=== PATIENT | male | born 1945 | race American Indian/Alaskan Native ===

== ENCOUNTER 2019-08-23 17:08 | Inpatient (IN) | payer MEDICARE ==
--- NOTE | 2019-08-23 18:35 | Emergency Department Report ---
ED Shortness of Breath HPI - General Chief Complaint: Dyspnea/Respdistress Stated Complaint: FEVER/COVID Time Seen by Provider: 08/23/19 18:05 Source: EMS Mode of arrival: Stretcher Limitations: No Limitations - History of Present Illness Initial Comments: Patient is a 73-year-old male who presents emergency room with complaints of shortness of breath, dyspnea on exertion, fever, chills, body aches, cough. Patient that she tested +2 weeks ago for COVID-19. Patient states his symptoms have worsened. Patient states his symptoms have been progressively worse over the last 2 weeks. Patient denies chest pain. Patient states his shortness of breath better with rest and worse with exertion. Patient states his cough is dry. Patient states he is not on home oxygen. MD Complaint: shortness of breath, cough -: Gradual, week(s) Severity: severe Consistency: constant Improves With: rest Worsens With: exertion, movement Context: recent URI Associated Symptoms: fever, cough Treatments Prior to Arrival: none - Related Data Home Oxygen Therapy: No Allergies Allergy/AdvReac Type Severity Reaction Status Date / Time No Known Allergies Allergy Unverified 08/23/19 19:38 ED Review of Systems ROS: Stated complaint: FEVER/COVID Other details as noted in HPI Constitutional: chills, fever, malaise Eyes: denies: eye pain, eye discharge, vision change ENT: denies: ear pain, throat pain Respiratory: cough, shortness of breath, SOB with exertion, SOB at rest. denies: wheezing Cardiovascular: denies: chest pain, palpitations Endocrine: no symptoms reported Gastrointestinal: nausea. denies: abdominal pain, vomiting, diarrhea Genitourinary: denies: urgency, dysuria Musculoskeletal: denies: back pain, joint swelling, arthralgia Skin: denies: rash, lesions Neurological: denies: headache, weakness, paresthesias Psychiatric: denies: anxiety, depression Hematological/Lymphatic: denies: easy bleeding, easy bruising ED Past Medical Hx - Past Medical History Previous Medical History?: Yes Hx Hypertension: Yes - Surgical History Past Surgical History?: No - Family History Family history: no significant - Social History Smoking Status: Never Smoker Substance Use Type: None ED Physical Exam - General Limitations: No Limitations General appearance: alert, in no apparent distress - Head Head exam: Present: atraumatic, normocephalic - Eye Eye exam: Present: normal appearance - ENT ENT exam: Present: mucous membranes moist - Neck Neck exam: Present: normal inspection - Respiratory Respiratory exam: Present: normal lung sounds bilaterally. Absent: respiratory distress, wheezes - Cardiovascular Cardiovascular Exam: Present: regular rate, normal rhythm. Absent: systolic murmur, diastolic murmur, rubs, gallop - GI/Abdominal GI/Abdominal exam: Present: soft, normal bowel sounds - Rectal Rectal exam: Present: deferred - Extremities Exam Extremities exam: Present: normal inspection - Back Exam Back exam: Present: normal inspection - Neurological Exam Neurological exam: Present: alert, oriented X3 - Psychiatric Psychiatric exam: Present: normal affect, normal mood - Skin Skin exam: Present: warm, dry, intact, normal color. Absent: rash ED Course Vital Signs 08/23/19 08/23/19 08/23/19 18:26 18:30 18:46 Temperature 101.0 F H Pulse Rate 84 70 77 Respiratory 19 19 24 Rate Blood Pressure 168/72 168/72 O2 Sat by Pulse 95 97 Oximetry 08/23/19 08/23/19 19:00 19:16 Temperature Pulse Rate 75 70 Respiratory 26 H 20 Rate Blood Pressure 168/72 168/72 O2 Sat by Pulse 96 97 Oximetry - Reevaluation(s) Reevaluation #1: Initial evaluation done. Patient found to be hypoxic. Patient 86% on room air and placed on 4 L of oxygen and is now 95%. 08/23/19 18:39 Reevaluation #2: I discussed all results with patient. I discussed plan of care with patient. Patient agrees with plan of care and admission. Patient to be admitted to the hospitalist service. 08/23/19 19:41 - Consultations Consultation #1: ID consult placed in the system along with the COVID NEUMANN protocol. 08/23/19 19:41 Consultation #2: Hospitalist consulted for admission. Hospitalist to admit patient. 08/23/19 19:45 ED Medical Decision Making - Lab Data Result diagrams: 08/23/19 19:06 08/23/19 19:06 - Radiology Data Radiology results: report reviewed, image reviewed CHEST 1 VIEW INDICATION: Dyspnea. COMPARISON: None. FINDINGS: Support devices: None. Heart: Normal. Lungs/Pleura: No consolidation or effusion. There are mild diffuse increased interstitial markings. IMPRESSION: 1. Mild diffuse increased interstitial markings could be due at least in part artifactual related to underpenetration/patient body habitus. This could also be seen in the setting of lower airways disease. - Medical Decision Making Patient is a 73-year-old male that presents emergency room with complaints of shortness of breath, dyspnea on exertion, fever, cough, COVID. Patient diagnosed COVID 2 weeks prior to arrival. Patient states his shortness of breath is worsening. Patient found to be hypoxic and placed on 4 L which brought his O2 sat from 86 to 94%. Patient given antibiotics and Decadron. Patient had labs done and were essentially unremarkable. Patient's COVID PUI panel ordered. Patient admitted to the hospitalist service. ID consulted. Chest x-ray shows bilateral pneumonia. - Differential Diagnosis Hypoxia, COVID, cough, pneumonia, shortness of breath, GREGORIO Critical Care Time: Yes Critical care time in (mins) excluding proc time.: 35 Critical care attestation.: If time is entered above; I have spent that time in minutes in the direct care of this critically ill patient, excluding procedure time. Critical Care Time: 35 minutes ED Disposition Clinical Impression: SOB (shortness of breath), COVID-19, GREGORIO (dyspnea on exertion), Hypoxia Fever Qualifiers: Fever type: unspecified Qualified Code(s): R50.9 - Fever, unspecified Pneumonia Qualifiers: Pneumonia type: due to unspecified organism Laterality: bilateral Lung location: unspecified part of lung Qualified Code(s): J18.9 - Pneumonia, unspecified organism Disposition: 09 OP ADMIT IP TO THIS HOSP Is pt being admited?: Yes Does the pt Need Aspirin: No Condition: Critical Referrals: JAMES RAMIREZ MD [Primary Care Provider] - 3-5 Days Time of Disposition: 19:41
--- NOTE | 2019-08-23 19:24 | XRay Report ---
CHEST 1 VIEW INDICATION: Dyspnea. COMPARISON: None. FINDINGS: Support devices: None. Heart: Normal. Lungs/Pleura: No consolidation or effusion. There are mild diffuse increased interstitial markings. IMPRESSION: 1. Mild diffuse increased interstitial markings could be due at least in part artifactual related to underpenetration/patient body habitus. This could also be seen in the setting of lower airways diseas e. Signer Name: Sarmad Rodriguez MD Signed: 08/23/2019 7:20 PM Workstation Name: [id number]
[2019-08-23] MEDS ORDERED: dexAMETHasone 4 MG/ML VIAL IV ONE (19:35)
[2019-08-23] MEDS ORDERED: cefTRIAXone/NS 2 GM/100 ML 2 GM/100 ML BAG IV ONE (19:35)
[2019-08-23 19:37] LABS: Basophils % (Auto) 0.5 % (0.0-1.8); Eosinophils % (Auto) 0.1 % (0.0-4.3); Hematocrit 39.5 % (35.5-45.6); Hemoglobin 12.5 gm/dl (11.8-15.2); Lymphocytes # (Auto) 0.8 K/mm3 (1.2-5.4); Lymphocytes % (Auto) 22.1 % (13.4-35.0); Mean Corpuscular HGB Conc 32 % (32-34); Mean Corpuscular Volume 76 fl (84-94); Monocytes # (Auto) 0.6 K/mm3 (0.0-0.8); Monocytes % (Auto) 14.8 % (0.0-7.3); Platelet Count 139 K/mm3 (140-440); Red Blood Count 5.21 M/mm3 (3.65-5.03); Red Cell Distribution Width 14.5 % (13.2-15.2)
[2019-08-23 19:57] LABS: Creatine Kinase MB 3.2 ng/mL (0.0-4.0)
[2019-08-23 20:00] LABS: Alanine Aminotransferase 101 units/L (7-56); Albumin 3.7 g/dL (3.9-5); BUN/Creatinine Ratio 16; Blood Urea Nitrogen 16 mg/dL (9-20); Calcium 8.5 mg/dL (8.4-10.2); Hemolysis Index 0
[2019-08-23] MEDS ORDERED: AZITHROMYCIN 500 MG in SODIUM CHLORIDE 0.9% 250ML 250 ML IV ONE (20:00)
[2019-08-23 20:15] LABS: C-Reactive Protein 4.3 mg/dL (0.00-1.30)
--- NOTE | 2019-08-23 20:31 | History and Physical Report ---
History of Present Illness Chief complaint: It is hard to breathe History of present illness: 73 YO Male with HTN presents to ED for evaluation. Pt states that he has experienced generalized weakness, malaise, early fatigue, decreased exercise tolerance, subjective fever, body aches, dry cough over the past 2 weeks with worsening symptoms over the same timeframe. Patient states that he tested positive for COVID-19 2 weeks ago. EMS notified and upon arrival the patient was found to be in respiratory distress and was subsequently transported to [facility] for further care and evaluation of the aforementioned symptoms. Patient seen and evaluated in the emergency department. Lab and imaging studies reviewed. Patient underwent chest x-ray which revealed bilateral pneumonia, as well as patient was found to have a pulse oximetry of 89% on room air which is consistent with acute hypoxemic respiratory failure. Patient initiated on COVID-19 protocol in the emergency department. Patient denies chills, chest pain, palpitations, unilateral leg swelling, calf pain, individual/family history of DVT/PE/bleeding/blood clotting disorders, prolonged travel/immobility, trauma. No prior admission for review. No medication listed at time of admission for reconciliation. Advanced care planning conducted in the ED. Patient admitted to medical floor due to increased risk of pulmonary decompensation. Past History Past Medical History: hypertension Past Surgical History: No surgical history, Other (Reviewed) Social history: Family history: hypertension Medications and Allergies Allergies Allergy/AdvReac Type Severity Reaction Status Date / Time No Known Allergies Allergy Unverified 08/23/19 19:38 Active Meds: Active Medications Azithromycin 500 mg/ Sodium (Chloride) 250 mls @ 250 mls/hr IV ONCE ONE; Protocol Stop: 08/23/19 20:59 Review of Systems Constitutional: fever, weakness, malaise, lethargy, no weight loss, no weight gain, no chills Ears, nose, mouth and throat: no ear pain, no ear discharge, no tinnitis, no decreased hearing, no nose pain, no nasal congestion Cardiovascular: no chest pain, no orthopnea, no palpitations, no rapid/irregular heart beat, no edema Respiratory: no cough, no cough with sputum, no hemoptysis, no shortness of breath Gastrointestinal: no nausea, no vomiting, no constipation Genitourinary Male: no hematuria, no flank pain, no discharge, no urinary frequency, no urinary hesitancy Rectal: no pain, no incontinence, no bleeding Musculoskeletal: no neck stiffness, no neck pain, no shooting arm pain, no arm numbness/tingling, no low back pain Integumentary: no rash, no pruritis, no redness, no sores Neurological: no transient paralysis, no paralysis, no parathesias Psychiatric: no anxiety, no memory loss, no change in sleep habits, no insomnia, no change in appetite Endocrine: no cold intolerance, no heat intolerance, no excessive thirst, no davie ydipsia, no polyuria Hematologic/Lymphatic: no easy bruising, no easy bleeding Allergic/Immunologic: no allergic rhinitis Exam - Constitutional Vitals: Temp Pulse Resp BP Pulse Ox 101.0 F H 70 20 168/72 97 08/23/19 18:26 08/23/19 19:16 08/23/19 19:16 08/23/19 19:16 08/23/19 19:16 General appearance: Present: mild distress - EENT Eyes: Present: PERRL ENT: hearing intact, clear oral mucosa - Neck Neck: Present: supple, normal ROM - Respiratory Respiratory effort: normal Respiratory: bilateral: diminished, rhonchi - Cardiovascular Heart Sounds: Present: S1 & S2. Absent: rub, click - Extremities Extremities: pulses symmetrical, No edema Peripheral Pulses: within normal limits - Abdominal General gastrointestinal: Present: soft, non-tender, non-distended, normal bowel sounds Male genitourinary: Present: normal - Integumentary Integumentary: Present: clear, warm, dry - Musculoskeletal Musculoskeletal: gait normal, strength equal bilaterally - Psychiatric Psychiatric: appropriate mood/affect, intact judgment & insight - Neurologic Neurologic: CNII-XII intact, moves all extremities HEART Score - HEART Score Troponin: Troponin T < 0.010 ng/mL (0.00-0.029) 08/23/19 19:06 Results - Labs CBC & Chem 7: 08/23/19 19:06 08/23/19 19:38 Labs: Abnormal lab results 08/23/19 08/23/19 08/23/19 Range/Units 19:06 19:06 19:38 WBC 3.8 L (4.5-11.0) K/mm3 RBC 5.21 H (3.65-5.03) M/mm3 MCV 76 L (84-94) fl MCH 24 L (28-32) pg Plt Count 139 L (140-440) K/mm3 [place] % (Auto) 14.8 H (0.0-7.3) % Lymph # 0.8 L (1.2-5.4) K/mm3 D-Dimer 838.92 H (0-234) ng/mlDDU Sodium 134 L (137-145) mmol/L Carbon Dioxide 21 L (22-30) mmol/L Glucose 108 H (75-100) mg/dL AST 109 H (5-40) units/L ALT 101 H (7-56) units/L Lactate Dehydrogenase (91-180) units/L Total Creatine Kinase 945 H (55-170) units/L C-Reactive Protein (0.00-1.30) mg/dL Albumin 3.7 L (3.9-5) g/dL 08/23/19 Range/Units 19:38 WBC (4.5-11.0) K/mm3 RBC (3.65-5.03) M/mm3 MCV (84-94) fl MCH (28-32) pg Plt Count (140-440) K/mm3 [place] % (Auto) (0.0-7.3) % Lymph # (1.2-5.4) K/mm3 D-Dimer (0-234) ng/mlDDU Sodium (137-145) mmol/L Carbon Dioxide (22-30) mmol/L Glucose 109 H (75-100) mg/dL AST (5-40) units/L ALT (7-56) units/L Lactate Dehydrogenase 583 H (91-180) units/L Total Creatine Kinase (55-170) units/L C-Reactive Protein 4.30 H (0.00-1.30) mg/dL Albumin (3.9-5) g/dL Assessment and Plan - Patient Problems (1) Acute hypoxemic respiratory failure Current Visit: Yes Status: Acute Plan to address problem: Supplemental oxygen, nebulizer therapy, pulse oximetry, chest x-ray, pulmonary toilet, (2) Hypertension Current Visit: Yes Status: Acute Qualifiers: Hypertension type: essential hypertension Qualified Code(s): I10 - Essential (primary) hypertension Plan to address problem: Monitor blood pressure every shift, continue medical management. (3) COVID-19 Current Visit: Yes Status: Acute Plan to address problem: COVID-19 protocol: COVID 19 PCR ordered in ED, isolation precautions, contact precautions, prone positioning while in bed (4) Pneumonia Current Visit: Yes Status: Acute Qualifiers: Pneumonia type: due to unspecified organism Laterality: bilateral Lung location: unspecified part of lung Qualified Code(s): J18.9 - Pneumonia, unspecified organism Plan to address problem: Pneumonia protocol: Chest x-ray, CBC, CMP, IV antibiotic therapy, supplemental oxygen, pulse oximetry, (5) DVT prophylaxis Current Visit: Yes Status: Acute Plan to address problem: SCD to bilateral lower extremities while in bed, patient is ambulatory. (6) Advance care planning Current Visit: Yes Status: Acute Plan to address problem: Disease education conducted, patient is full code, patient prognosis discussed, patient acknowledges understanding and agreement with care plan, +30 minutes.
[2019-08-23] MEDS ORDERED: ACETAMINOPHEN 325 MG TAB PO PRN (20:42)
[2019-08-23] MEDS ORDERED: ONDANSETRON 4 MG/2 ML INJ IV PRN (20:42)
[2019-08-24 08:47] LABS: Basophils % (Auto) 0.6 % (0.0-1.8); Eosinophils % (Auto) 0.1 % (0.0-4.3); Hematocrit 40.2 % (35.5-45.6); Hemoglobin 12.7 gm/dl (11.8-15.2); Lymphocytes # (Auto) 0.8 K/mm3 (1.2-5.4); Lymphocytes % (Auto) 30.8 % (13.4-35.0); Mean Corpuscular HGB Conc 32 % (32-34); Mean Corpuscular Volume 76 fl (84-94); Monocytes # (Auto) 0.3 K/mm3 (0.0-0.8); Monocytes % (Auto) 11.7 % (0.0-7.3); Platelet Count 144 K/mm3 (140-440); Red Blood Count 5.27 M/mm3 (3.65-5.03); Red Cell Distribution Width 14.8 % (13.2-15.2)
[2019-08-24 09:04] LABS: BUN/Creatinine Ratio 19; Blood Urea Nitrogen 15 mg/dL (9-20); Calcium 8.8 mg/dL (8.4-10.2); Hemolysis Index 11
[2019-08-24] MEDS: AZITHROMYCIN 250 MG TAB PO SCH (09:58)
[2019-08-24] MEDS: cefTRIAXone/NS 2 GM/100 ML 2 GM/100 ML BAG IV SCH (09:58)
[2019-08-24] MEDS ORDERED: AZITHROMYCIN 500 MG in SODIUM CHLORIDE 0.9% 250ML 250 ML IV SCH (10:00)
--- NOTE | 2019-08-24 19:02 | Progress Note ---
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 Which is pneumonia currently treated with cefepime and azithromycin. (2) Advance care planning Current Visit: Yes Status: Acute (3) COVID-19 Current Visit: Yes Status: Acute Plan to address problem: Patient past history of COVID-19 infection. Most likely latent pneumonia or infection from previous COVID. COVID PCR pending. Patient continue isolation as we are doing now. (4) GREGORIO (dyspnea on exertion) Current Visit: Yes Status: Acute Plan to address problem: Secondary to pneumonia. (5) Pneumonia Current Visit: Yes Status: Acute Qualifiers: Pneumonia type: due to unspecified organism Laterality: bilateral Lung location: unspecified part of lung Qualified Code(s): J18.9 - Pneumonia, unspecified organism Plan to address problem: Patient has bilateral pneumonia consistent with possible COVID infection versus community-acquired infection. Patient being treated with azithromycin and cefepime at this time. Seems to be improving. History Interval history: Patient is 73-year-old with history of hypertension generalized weakness malaise fatigue presents with fever cough x2 weeks. Patient was COVID +2 weeks ago. Appears to have had a latent infection secondary to COVID pneumonia. Patient st ates he feels better today. Breathing better. Hospitalist Physical - Constitutional Vitals: Temp Pulse Resp BP Pulse Ox 97.6 F 56 L 22 135/54 94 08/24/19 11:43 08/24/19 11:43 08/24/19 11:43 08/24/19 11:43 08/24/19 11:43 General appearance: Present: mild distress - EENT Eyes: Present: PERRL, EOM intact ENT: hearing intact, clear oral mucosa, dentition normal - Neck Neck: Present: supple, normal ROM - Respiratory Respiratory: bilateral: rales, rhonchi - Cardiovascular Rhythm: irregularly irregular Heart Sounds: Present: S1 & S2 - Extremities Extremities: no ischemia, pulses symmetrical, No edema, Full ROM, abnormal Extremity abnormal: other (Deconditioning) - Psychiatric Psychiatric: appropriate mood/affect - Neurologic Neurologic: CNII-XII intact, focal deficits HEART Score - HEART Score Troponin: Troponin T < 0.010 ng/mL (0.00-0.029) 08/23/19 19:06 Results - Labs CBC & Chem 7: 08/24/19 07:46 08/24/19 07:46 Labs: Laboratory Last Values WBC 2.5 K/mm3 (4.5-11.0) L 08/24/19 07:46 RBC 5.27 M/mm3 (3.65-5.03) H 08/24/19 07:46 Hgb 12.7 gm/dl (11.8-15.2) 08/24/19 07:46 Hct 40.2 % (35.5-45.6) 08/24/19 07:46 MCV 76 fl (84-94) L 08/24/19 07:46 MCH 24 pg (28-32) L 08/24/19 07:46 MCHC 32 % (32-34) 08/24/19 07:46 RDW 14.8 % (13.2-15.2) 08/24/19 07:46 Plt Count 144 K/mm3 (140-440) 08/24/19 07:46 Lymph % (Auto) 30.8 % (13.4-35.0) 08/24/19 07:46 [place] % (Auto) 11.7 % (0.0-7.3) H 08/24/19 07:46 Eos % (Auto) 0.1 % (0.0-4.3) 08/24/19 07:46 Baso % (Auto) 0.6 % (0.0-1.8) 08/24/19 07:46 Lymph # 0.8 K/mm3 (1.2-5.4) L 08/24/19 07:46 [place] # 0.3 K/mm3 (0.0-0.8) 08/24/19 07:46 Eos # 0.0 K/mm3 (0.0-0.4) 08/24/19 07:46 Baso # 0.0 K/mm3 (0.0-0.1) 08/24/19 07:46 Seg Neutrophils % 56.8 % (40.0-70.0) 08/24/19 07:46 Seg Neutrophils # 1.4 K/mm3 (1.8-7.7) L 08/24/19 07:46 D-Dimer 838.92 ng/mlDDU (0-234) H 08/23/19 19:38 Sodium 135 mmol/L (137-145) L 08/24/19 07:46 Potassium 5.5 mmol/L (3.6-5.0) H D 08/24/19 07:46 Chloride 100.1 mmol/L (98-107) 08/24/19 07:46 Carbon Dioxide 25 mmol/L (22-30) 08/24/19 07:46 Anion Gap 15 mmol/L 08/24/19 07:46 BUN 15 mg/dL (9-20) 08/24/19 07:46 Creatinine 0.8 mg/dL (0.8-1.5) 08/24/19 07:46 Estimated GFR > 60 ml/min 08/24/19 07:46 BUN/Creatinine Ratio 19 % 08/24/19 07:46 Glucose 124 mg/dL (75-100) H 08/24/19 07:46 Lactic Acid 1.10 mmol/L (0.7-2.0) 08/23/19 19:06 Calcium 8.8 mg/dL (8.4-10.2) 08/24/19 07:46 Ferritin > 2000.0 ng/mL (13.0-400.0) H 08/23/19 19:38 Total Bilirubin 0.40 mg/dL (0.1-1.2) 08/23/19 19:06 AST 109 units/L (5-40) H 08/23/19 19:06 ALT 101 units/L (7-56) H 08/23/19 19:06 Alkaline Phosphatase 58 units/L (35-129) 08/23/19 19:06 Lactate Dehydrogenase 583 units/L (91-180) H 08/23/19 19:38 Total Creatine Kinase 945 units/L (55-170) H 08/23/19 19:06 CK-MB (CK-2) 3.2 ng/mL (0.0-4.0) 08/23/19 19:06 CK-MB (CK-2) Rel Index 0.3 (0-4) 08/23/19 19:06 Troponin T < 0.010 ng/mL (0.00-0.029) 08/23/19 19:06 C-Reactive Protein 4.30 mg/dL (0.00-1.30) H 08/23/19 19:38 Total Protein 7.1 g/dL (6.3-8.2) 08/23/19 19:06 Albumin 3.7 g/dL (3.9-5) L 08/23/19 19:06 Albumin/Globulin Ratio 1.1 % 08/23/19 19:06 Procalcitonin 0.17 ng/mL (<0.15) 08/23/19 19:38 Jeffers/IV: Voiding Method Urinal IV Catheter Type [Right Hand] INT / Saline Lock Active Medications - Current Medications Current Medications: Generic Name Dose Route Start Last Admin Trade Name Freq PRN Reason Stop Dose Admin Acetaminophen 650 mg 08/23/19 20:42 Tylenol PO Q4H PRN Pain MILD(1-3)/Fever >100.5/DC Azithromycin 500 mg 08/24/19 10:00 08/24/19 09:58 Zithromax PO 500 mg QDAY MARLY Administration Ceftriaxone Sodium 2 gm in 100 mls @ 200 mls/hr 08/24/19 10:00 08/24/19 09:58 Rocephin/Ns 2 Gm/100 Ml IV 200 mls/hr Q24HR MARLY Administration Protocol Ondansetron HCl 4 mg 08/23/19 20:42 Zofran IV Q8H PRN Nausea And Vomiting Sodium Chloride 10 ml 08/23/19 22:00 08/24/19 09:59 Sodium Chloride Flush Syringe 10 Ml IV 10 ml BID MARLY Administration Sodium Chloride 10 ml 08/23/19 20:42 Sodium Chloride Flush Syringe 10 Ml IV PRN PRN LINE FLUSH
[2019-08-25] MEDS: AZITHROMYCIN 250 MG TAB PO SCH (09:31)
[2019-08-25] MEDS: cefTRIAXone/NS 2 GM/100 ML 2 GM/100 ML BAG IV SCH (09:31)
--- NOTE | 2019-08-25 12:48 | Progress Note ---
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 Which is pneumonia currently treated with cefepime and azithromycin. (2) Advance care planning Current Visit: Yes Status: Acute (3) COVID-19 Current Visit: Yes Status: Acute Plan to address problem: Patient with a positive test 2 weeks ago now presents with persistent fever weakness. Chest x-ray unremarkable for acute disease. Patient did have elev ated inflammatory markers. ID consult to see if patient requires treatment with antiviral, steroids and with a repeat Kovic test to be beneficial at this time. (4) GREGORIO (dyspnea on exertion) Current Visit: Yes Status: Acute Plan to address problem: Secondary to pneumonia. (5) Pneumonia Current Visit: Yes Status: Acute Qualifiers: Pneumonia type: due to unspecified organism Laterality: bilateral Lung location: unspecified part of lung Qualified Code(s): J18.9 - Pneumonia, unspecified organism Plan to address problem: Patient appears to have clinical pneumonia at this time continue treatment for community-acquired pneumonia Rocephin and azithromycin. Patient is currently afebrile. Will repeat inflammatory markers now. (6) Bradycardia Current Visit: Yes Status: Acute Plan to address problem: Does not appear to be new cardiology consult patient sees [facility]. Subjective Date of service: 08/25/19 Principal diagnosis: Fever weakness suspected COVID. Interval history: Patient is 73-year-old with history of hypertension generalized weakness malaise fatigue presents with fever cough x2 weeks. Patient was COVID +2 weeks ago. Appears to have had a latent infection secondary to COVID pneumonia. Patient states he feels better today. Breathing better. Hospital course complicated by bradycardia. In prior history does not appear to be new. Objective - Constitutional Vitals: Vital Signs - 12hr 08/25/19 08/25/19 08/25/19 04:47 08:53 11:43 Temperature 97.8 F 98.2 F Pulse Rate 48 L 63 Respiratory 18 Rate Blood Pressure 148/69 145/63 O2 Sat by Pulse 95 94 94 Oximetry General appearance: Present: no acute distress, well-nourished - EENT Eyes: PERRL, EOM intact ENT: hearing intact, clear oral mucosa Ears: bilateral: normal - Neck Neck: supple, normal ROM - Respiratory Respiratory effort: normal Respiratory: bilateral: CTA - Breasts Breasts: normal - Cardiovascular Rhythm: other (Bradycardia went down to the 40s yesterday.) Heart Sounds: Present: S1 & S2. Absent: gallop, rub Extremities: pulses intact, No edema, normal color, Full ROM - Gastrointestinal General gastrointestinal: Present: soft, non-tender, non-distended, normal bowel sounds - Genitourinary Male genitourinary: normal - Integumentary Integumentary: clear, warm, dry - Musculoskeletal Musculoskeletal: generalized weakness - Neurologic Neurologic: moves all extremities - Psychiatric Psychiatric: memory intact, appropriate mood/affect, intact judgment & insight - Labs CBC & Chem 7: 08/24/19 07:46 08/24/19 07:46 HEART Score - HEART Score Troponin: Troponin T < 0.010 ng/mL (0.00-0.029) 08/23/19 19:06
--- NOTE | 2019-08-25 13:08 | Consultation ---
History of Present Illness Consult date: 08/25/19 Consult reason: bradycardia History of present illness: The patient is a 73-year-old man with a history of hypertension, on amlodipine at home, presents to the hospital at this time with shortness of breath and low- grade fever at home. In the hospital, his maximum temperature has been 101. It is reported that 2 weeks ago, he was hospitalized at [facility] with COVID-19 pneumonia. He was admitted by the medical service for further evaluation of his post COVID status, and is undergoing further management by infectious disease and internal medicine. 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 His heart rate has been as low as 48. The patient has no symptoms of dizziness or syncope. His blood pressure has been elevated in the 140s to 150s systolic. He states that he follows up with a bottoming room supervisor Dr. Olivas on a regular basis, but unable to articulate details of any prior cardiac history or work-up. He denies any history of thyroid disease. Currently the patient is comfortable in his room, alert and oriented, no acute distress. He is in a sinus rhythm at 58. EKG reviewed shows a sinus rhythm, left ventricular hypertrophy with marked repolarization abnormalities of LVH. There are no old ECGs for comparison. Past History Past Medical History: hypertension Past Surgical History: No surgical history Social history: Family history: hypertension Medications and Allergies Allergies Allergy/AdvReac Type Severity Reaction Status Date / Time No Known Allergies Allergy Unverified 08/23/19 19:38 Home Medications Medication Instructions Recorded Confirmed Last Taken Type Amlodipine Besylate [Norvasc] 10 mg PO DAILY 08/23/19 08/23/19 08/23/19 History Aspirin EC [Halfprin EC] 81 mg PO QDAY 08/23/19 08/23/19 08/23/19 History predniSONE [Deltasone] 20 mg PO BID 08/24/19 08/24/19 Unknown History Active Meds: Active Medications Acetaminophen (Tylenol) 650 mg PO Q4H PRN PRN Reason: Pain MILD(1-3)/Fever >100.5/DC Azithromycin (Zithromax) 500 mg PO QDAY [facility] Last Admin: 08/25/19 09:31 Dose: 500 mg Documented by: Ceftriaxone Sodium (Rocephin/Ns 2 Gm/100 Ml) 2 gm in 100 mls @ 200 mls/hr IV Q24HR [facility]; Protocol Last Admin: 08/25/19 09:31 Dose: 200 mls/hr Documented by: Ondansetron HCl (Zofran) 4 mg IV Q8H PRN PRN Reason: Nausea And Vomiting Sodium Chloride (Sodium Chloride Flush Syringe 10 Ml) 10 ml IV BID [facility] Last Admin: 08/25/19 09:32 Dose: 10 ml Documented by: Sodium Chloride (Sodium Chloride Flush Syringe 10 Ml) 10 ml IV PRN PRN PRN Reason: LINE FLUSH Review of Systems Cardiovascular: shortness of breath, no chest pain, no orthopnea, no palpitations, no rapid/irregular heart beat, no edema, no syncope, no lightheadedness Physical Examination Vital Signs Temp Pulse Resp 101.0 F H 84 19 08/23/19 18:26 08/23/19 18:26 08/23/19 18:26 General appearance: no acute distress HEENT: Positive: PERRL Neck: Positive: neck supple Cardiac: Positive: Regular Rhythm Lungs: Positive: Decreased Breath Sounds Neuro: Positive: Grossly Intact Abdomen: Positive: Soft Male genitourinary: Positive: deferred Skin: Positive: Clear Extremities: Absent: edema Results 08/24/19 07:46 08/24/19 07:46 EKG interpretations - Telemetry EKG Rhythm: Sinus Bradycardia Assessment and Plan - Patient Problems (1) Bradycardia Current Visit: Yes Status: Acute Plan to address problem: We will order a thyroid profile, and recommend strict avoidance of AV shamir blocking agents. The patient currently has a fever and shortness of breath 2 weeks post COVID-19 infection, undergoing further infectious disease evaluation. (2) Hypertension Current Visit: Yes Status: Acute Qualifiers: Hypertension type: essential hypertension Qualified Code(s): I10 - Essential (primary) hypertension Plan to address problem: For uncontrolled hypertension, I will switch the patient's therapy to Procardia XL 30 to 60 mg daily, and discontinue amlodipine.
[2019-08-25] MEDS: NIFEdipine XL 30 MG TAB PO SCH (15:27)
[2019-08-25 16:12] LABS: C-Reactive Protein 1.7 mg/dL (0.00-1.30)
[2019-08-25 16:14] LABS: Alanine Aminotransferase 101 units/L (7-56); Albumin 3.8 g/dL (3.9-5); BUN/Creatinine Ratio 19; Blood Urea Nitrogen 17 mg/dL (9-20); Calcium 8.7 mg/dL (8.4-10.2); Hemolysis Index 23
[2019-08-25] MEDS ORDERED: REMDESIVIR 200 MG in SODIUM CHLORIDE 0.9% 250ML 250 ML IV ONE (18:10)
--- NOTE | 2019-08-25 18:10 | Consultation ---
History of Present Illness - Reason for Consult Consult date: 08/25/19 COVID Requesting physician: TISHA MCCORMACK - History of Present Illness The patient is a 73-year-old male with hypertension admitted to the hospital with shortness of breath. About 2 weeks ago he had tested positive for COVID- 19. Due to worsening shortness of breath, he came to the ER. Chest x-ray showed bilateral pneumonia. He was found to be hypoxic on room air. He was started on empiric antibiotics. Infectious diseases was consulted for additional evaluation. He had a fever of 101 F on admission. Labs showed leukopenia, d-dimer 691, ferritin is significantly elevated at > 2K, LDH 508, procalcitonin 0.17. Review of Systems: reviewed in the chart, unable to obtain directly due to PPE shortage and preservation Past History Past Medical History: hypertension Past Surgical History: No surgical history Social history: Family history: hypertension Medications and Allergies Allergies Allergy/AdvReac Type Severity Reaction Status Date / Time No Known Allergies Allergy Unverified 08/23/19 19:38 Home Medications Medication Instructions Recorded Confirmed Last Taken Type Amlodipine Besylate [Norvasc] 10 mg PO DAILY 08/23/19 08/23/19 08/23/19 History Aspirin EC [Halfprin EC] 81 mg PO QDAY 08/23/19 08/23/19 08/23/19 History predniSONE [Deltasone] 20 mg PO BID 08/24/19 08/24/19 Unknown History Active Meds: Active Medications Acetaminophen (Tylenol) 650 mg PO Q4H PRN PRN Reason: Pain MILD(1-3)/Fever >100.5/DC Azithromycin (Zithromax) 500 mg PO QDAY [facility] Last Admin: 08/25/19 09:31 Dose: 500 mg Documented by: Ceftriaxone Sodium (Rocephin/Ns 2 Gm/100 Ml) 2 gm in 100 mls @ 200 mls/hr IV Q24HR [facility]; Protocol Last Admin: 08/25/19 09:31 Dose: 200 mls/hr Documented by: Nifedipine (Procardia Xl) 30 mg PO QDAY [facility] Last Admin: 08/25/19 15:27 Dose: 30 mg Documented by: Ondansetron HCl (Zofran) 4 mg IV Q8H PRN PRN Reason: Nausea And Vomiting Sodium Chloride (Sodium Chloride Flush Syringe 10 Ml) 10 ml IV BID [facility] Last Admin: 08/25/19 09:32 Dose: 10 ml Documented by: Sodium Chloride (Sodium Chloride Flush Syringe 10 Ml) 10 ml IV PRN PRN PRN Reason: LINE FLUSH Physical Examination - Physical Exam Narrative exam: Physical Exam (reviewed in chart due to PPE conservation) Constitutional: limited due to PPE conservation strategy Head, Ears, Nose: limited due to PPE conservation strategy Eyes: limited due to PPE conservation strategy Neck: limited due to PPE conservation strategy Oral: limited due to PPE conservation strategy Cardiovascular: limited due to PPE conservation strategy Respiratory: limited due to PPE conservation strategy GI: limited due to PPE conservation strategy Musculoskeletal: limited due to PPE conservation strategy Skin: limited due to PPE conservation strategy Hem/Lymphatic: limited due to PPE conservation strategy Psych: limited due to PPE conservation strategy Neurological: limited due to PPE conservation strategy - Constitutional Vitals: Vital Signs Temp Pulse Resp BP Pulse Ox 98.2 F 63 18 145/63 94 08/25/19 11:43 08/25/19 11:43 08/25/19 04:47 08/25/19 11:43 08/25/19 11:43 Temperature -Last 24 Hours Temperature 98.2 F Temperature 97.8 F Temperature 97.4 F Results - Labs CBC & Chem 7: 08/24/19 07:46 08/25/19 15:31 Labs: Abnormal lab results 08/25/19 08/25/19 08/25/19 Range/Units 15:31 15:31 15:31 D-Dimer 691.39 H (0-234) ng/mlDDU Glucose 105 H 107 H (75-100) mg/dL POC Glucose (70-105) AST 90 H (5-40) units/L ALT 101 H (7-56) units/L Lactate Dehydrogenase 508 H (91-180) units/L C-Reactive Protein 1.70 H (0.00-1.30) mg/dL Albumin 3.8 L (3.9-5) g/dL 08/25/19 Range/Units 17:33 D-Dimer (0-234) ng/mlDDU Glucose (75-100) mg/dL POC Glucose 110 H (70-105) AST (5-40) units/L ALT (7-56) units/L Lactate Dehydrogenase (91-180) units/L C-Reactive Protein (0.00-1.30) mg/dL Albumin (3.9-5) g/dL - Imaging and Cardiology Chest x-ray: report reviewed, image reviewed (CXR showed diffuse interstitial markings) Assessment and Plan Cultures: Coronavirus PCR: Pending A/P: 73-year-old male with hypertension admitted to the hospital with shortness of breath: #Bilateral pneumonia: Secondary to COVID (tested positive 2 weeks ago). d-dimer 691, ferritin is significantly elevated at > 2K, LDH 508, procalcitonin 0.17 #Acute hypoxic respiratory failure: Hypoxic requiring supplemental oxygen #Leukopenia secondary to COVID-19 #Elevated LFTs secondary to COVID-19 Recs: IV/PO Dexamethasone 6 mg daily x 10 days IV Remdesivir for 5 days, monitor LFTs Monitor oxygen saturations, if further decline, may need to give Actemra given elevated ferritin and markers prophylactic anticoagulation based on d-dimer: 0.5 mg/kg of Lovenox every 12 hours trend ferritin, LDH, d-dimer, CRP every 2-3 days for risk stratification and to assess disease progression Antibiotics discontinued Luz Brewster MD, FACP [facility] ([facility] C: [phone] O: [phone] F: [phone]
[2019-08-25] MEDS: ENOXAPARIN 40 MG/0.4 ML INJ SUB-Q SCH (21:02)
[2019-08-25] MEDS: DEXAMETHASONE 4 MG TAB PO SCH (21:03)
[2019-08-25] MEDS: SODIUM CHLORIDE 0.9% 50 ML IVPB IV SCH (21:04)
--- NOTE | 2019-08-26 08:49 | Progress Note ---
Assessment and Plan Assessment and Plan Acute respiratory failure due to covid 19 infection Continue current treatment bronchodilators, systemic steroids, and oxygen supplement Clerk Manager follow ID following-f/u with recommendation Covid 19 infection Continue remdesivir and decadrone Monitor inflammatory maker 08/25/19-D-dimer 691.39 Continue [id number] Shortness of breath Continue respirator care Monitor 02 sat, ABGs Follow offc spec reces . Pneumonia D/c IV antibiotic therapy Patient is currently Monitor inflammatory makers-CRP, d-dimer,and ferritin 08/23/2019-Chest x-ray shows- Mild diffuse increased interstitial markings could be due at least in part artifactual related Bradycardia-resolved Monitor HR-58 this am Advise patient to f/u with her manufacturing technology professor post d/c reviewed manufacturing technology professor note-dr Bonds-Cardiac saldivar stable Tobacco use Patient admits tobacco use 3 wilkinson weekly for 50 years Discussed tobacco use cessation Cardiovascular and neoplasm syndrome of tobacco use explained to patient DVT prohylaxis-Lovenox 08/26/19-reviewed ID note IV/PO Dexamethasone 6 mg daily x 10 days, D2 IV Remdesivir for 5 days, monitor LFTs, D2 Subjective Principal diagnosis: Fever weakness suspected COVID. Interval history: patient seen lying on the bed Admits tobacco use-counselled on tobacco use cessation Objective - Constitutional Vitals: Vital Signs - 12hr 08/25/19 08/25/19 08/26/19 21:43 23:31 04:00 Temperature 98.4 F 98.5 F Pulse Rate 57 L 58 L Respiratory 20 20 Rate Blood Pressure 157/65 Blood Pressure 156/87 [Right] O2 Sat by Pulse 96 96 96 Oximetry General appearance: Present: no acute distress - Labs CBC & Chem 7: 08/24/19 07:46 08/25/19 15:31 Labs: Abnormal lab results 08/25/19 08/25/19 08/25/19 Range/Units 15:31 15:31 15:31 D-Dimer 691.39 H (0-234) ng/mlDDU Glucose 105 H 107 H (75-100) mg/dL POC Glucose (70-105) Ferritin (13.0-400.0) ng/mL AST 90 H (5-40) units/L ALT 101 H (7-56) units/L Lactate Dehydrogenase 508 H (91-180) units/L C-Reactive Protein 1.70 H (0.00-1.30) mg/dL Albumin 3.8 L (3.9-5) g/dL 08/25/19 08/25/19 08/25/19 Range/Units 15:31 17:33 23:43 D-Dimer (0-234) ng/mlDDU Glucose (75-100) mg/dL POC Glucose 110 H 117 H (70-105) Ferritin 3086.0 H (13.0-400.0) ng/mL AST (5-40) units/L ALT (7-56) units/L Lactate Dehydrogenase (91-180) units/L C-Reactive Protein (0.00-1.30) mg/dL Albumin (3.9-5) g/dL 08/26/19 Range/Units 08:12 D-Dimer (0-234) ng/mlDDU Glucose (75-100) mg/dL POC Glucose 116 H (70-105) Ferritin (13.0-400.0) ng/mL AST (5-40) units/L ALT (7-56) units/L Lactate Dehydrogenase (91-180) units/L C-Reactive Protein (0.00-1.30) mg/dL Albumin (3.9-5) g/dL HEART Score - HEART Score Troponin: Troponin T < 0.010 ng/mL (0.00-0.029) 08/23/19 19:06
--- NOTE | 2019-08-26 09:13 | Progress Note ---
Assessment and Plan 1. Sinus bradycardia resolved 2. Essential hypertension 3. COVID 19 viral pneumonia Plan Cardiac saldivar stable continue treatment for COVID-19 pneumonia Subjective Date of service: 08/26/19 Principal diagnosis: Fever weakness suspected COVID. Interval history: No cardiac symptoms Objective Vital Signs Temp Pulse Resp BP BP Pulse Ox 08/26/19 04:00 98.5 F 58 L 20 156/87 96 08/25/19 23:31 98.4 F 57 L 20 157/65 96 08/25/19 21:43 96 08/25/19 11:43 98.2 F 63 145/63 94 - Physical Examination General: Appears Well HEENT: Positive: PERRL Neck: Positive: neck supple. Negative: JVD/HJR Cardiac: Positive: Regular Rate, S1/S2, PMI, Laterally Displaced Lungs: Positive: clear to auscultation, No Wheeze, Rales, Rhonchi Neuro: Positive: Grossly Intact Abdomen: Positive: Soft Skin: Positive: Clear Extremities: Absent: edema - Labs and Meds Cardiac Enzymes 08/25/19 08/25/19 Range/Units 15:31 15:31 AST 90 H (5-40) units/L Lactate Dehydrogenase 508 H (91-180) units/L Comprehensive Metabolic Panel 08/25/19 08/25/19 Range/Units 15:31 15:31 Sodium 139 (137-145) mmol/L Potassium 4.8 (3.6-5.0) mmol/L Chloride 102.6 (98-107) mmol/L Carbon Dioxide 23 (22-30) mmol/L BUN 17 (9-20) mg/dL Creatinine 0.9 (0.8-1.5) mg/dL Glucose 105 H 107 H (75-100) mg/dL Calcium 8.7 (8.4-10.2) mg/dL AST 90 H (5-40) units/L ALT 101 H (7-56) units/L Alkaline Phosphatase 64 (35-129) units/L Total Protein 6.3 (6.3-8.2) g/dL Albumin 3.8 L (3.9-5) g/dL
[2019-08-26] MEDS: DEXAMETHASONE 4 MG TAB PO SCH (11:35)
[2019-08-26] MEDS: NIFEdipine XL 30 MG TAB PO SCH (11:36)
[2019-08-26] MEDS: ENOXAPARIN 40 MG/0.4 ML INJ SUB-Q SCH ×2 (11:36→21:18)
--- NOTE | 2019-08-26 15:18 | Progress Note ---
Assessment and Plan Cultures: Coronavirus PCR: positive A/P: 73-year-old male with hypertension admitted to the hospital with shortness of breath: #Bilateral pneumonia: Secondary to COVID (tested positive 2 weeks ago) and here again. d-dimer 691, ferritin is significantly elevated at > 2K, LDH 508, procalcitonin 0.17 #Acute hypoxic respiratory failure: Hypoxic requiring supplemental oxygen #Leukopenia secondary to COVID-19 #Elevated LFTs secondary to COVID-19 Recs: IV/PO Dexamethasone 6 mg daily x 10 days, D2 IV Remdesivir for 5 days, monitor LFTs, D2 Monitor oxygen saturations, if further decline, may need to give Actemra given elevated ferritin and markers prophylactic anticoagulation based on d-dimer: 0.5 mg/kg of Lovenox every 12 hours trend ferritin, LDH, d-dimer, CRP every 2-3 days for risk stratification and to assess disease progression Luz Brewster MD, FACP [facility] C: [phone] O: [phone] F: [phone] Subjective Date of service: 08/26/19 Principal diagnosis: Fever weakness suspected COVID. Interval history: No fever. Oxygenation stable. Objective - Exam Narrative Exam: Physical Exam (reviewed in chart due to PPE conservation) Constitutional: limited due to PPE conservation strategy Head, Ears, Nose: limited due to PPE conservation strategy Eyes: limited due to PPE conservation strategy Neck: limited due to PPE conservation strategy Oral: limited due to PPE conservation strategy Cardiovascular: limited due to PPE conservation strategy Respiratory: limited due to PPE conservation strategy GI: limited due to PPE conservation strategy Musculoskeletal: limited due to PPE conservation strategy Skin: limited due to PPE conservation strategy Hem/Lymphatic: limited due to PPE conservation strategy Psych: limited due to PPE conservation strategy Neurological: limited due to PPE conservation strategy - Constitutional Vitals: Vital Signs Temp Pulse Resp BP Pulse Ox 98.0 F 65 22 145/58 96 08/26/19 11:34 08/26/19 11:34 08/26/19 11:34 08/26/19 11:34 08/26/19 11:34 Temperature -Last 24 Hours Temperature 98.0 F Temperature 98.5 F Temperature 98.4 F - Labs CBC & Chem 7: 08/24/19 07:46 08/25/19 15:31 Labs: Abnormal lab results 08/25/19 08/25/19 08/25/19 Range/Units 15:31 15:31 15:31 D-Dimer 691.39 H (0-234) ng/mlDDU Glucose 105 H 107 H (75-100) mg/dL POC Glucose (70-105) Ferritin (13.0-400.0) ng/mL AST 90 H (5-40) units/L ALT 101 H (7-56) units/L Lactate Dehydrogenase 508 H (91-180) units/L C-Reactive Protein 1.70 H (0.00-1.30) mg/dL Albumin 3.8 L (3.9-5) g/dL Coronavirus (PCR) (Negative) 08/25/19 08/25/19 08/25/19 Range/Units 15:31 17:33 23:43 D-Dimer (0-234) ng/mlDDU Glucose (75-100) mg/dL POC Glucose 110 H 117 H (70-105) Ferritin 3086.0 H (13.0-400.0) ng/mL AST (5-40) units/L ALT (7-56) units/L Lactate Dehydrogenase (91-180) units/L C-Reactive Protein (0.00-1.30) mg/dL Albumin (3.9-5) g/dL Coronavirus (PCR) (Negative) 08/25/19 08/26/19 08/26/19 Range/Units Unknown 08:12 11:46 D-Dimer (0-234) ng/mlDDU Glucose (75-100) mg/dL POC Glucose 116 H 119 H (70-105) Ferritin (13.0-400.0) ng/mL AST (5-40) units/L ALT (7-56) units/L Lactate Dehydrogenase (91-180) units/L C-Reactive Protein (0.00-1.30) mg/dL Albumin (3.9-5) g/dL Coronavirus (PCR) Positive A (Negative)
[2019-08-26] MEDS: REMDESIVIR 100 MG in SODIUM CHLORIDE 0.9% 250ML 250 ML IV SCH (20:24)
[2019-08-26] MEDS: SODIUM CHLORIDE 0.9% 50 ML IVPB IV SCH (21:19)
--- NOTE | 2019-08-27 10:16 | Progress Note ---
Assessment and Plan 1. Sinus bradycardia resolved 2. Essential hypertension 3. COVID 19 viral pneumonia Plan Cardiac saldivar stable continue treatment for COVID-19 pneumonia Subjective Date of service: 08/27/19 Principal diagnosis: Fever weakness suspected COVID. Interval history: No cardiac symptoms Objective Vital Signs Temp Pulse Resp BP Pulse Ox 08/27/19 09:58 95 08/26/19 22:03 98.3 F 20 148/65 08/26/19 21:17 95 08/26/19 17:18 98.0 F 55 L 22 150/72 95 08/26/19 11:34 98.0 F 65 22 145/58 96 - Physical Examination General: Appears Well HEENT: Positive: PERRL Neck: Positive: neck supple. Negative: JVD/HJR Cardiac: Positive: Regular Rate, S1/S2, PMI. Negative: S3, S4 Lungs: Positive: Normal Breath Sounds, No Wheeze, Rales, Rhonchi Neuro: Positive: Grossly Intact Abdomen: Positive: Soft Skin: Positive: Clear Extremities: Absent: edema
[2019-08-27] MEDS: DEXAMETHASONE 4 MG TAB PO SCH (10:39)
[2019-08-27] MEDS: ENOXAPARIN 40 MG/0.4 ML INJ SUB-Q SCH ×2 (10:39→22:10)
[2019-08-27] MEDS: NIFEdipine XL 30 MG TAB PO SCH (10:40)
--- NOTE | 2019-08-27 12:57 | Progress Note ---
Assessment and Plan Assessment and Plan Acute respiratory failure due to covid 19 infection Continue current treatment bronchodilators, systemic steroids, and oxygen supplement Director [employer] follow ID following-f/u with recommendation Covid 19 infection Continue remdesivir and decadrone Monitor inflammatory maker 08/25/19-D-dimer 691.39 Continue [id number] Hepatic panel, D-garrett, and ferritin in am-f/u with result Shortness of breath Continue respirator care Monitor 02 sat, ABGs Follow customer response representative reces . 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 Interval history: Patient seen sitting active bedside. Patient on oxygen at 3 L nasal cannula. Patient reports mild shortness of breath. But he said he is feeling better than he did when he first came to the hospital. Reviewed infectious disease orders. Patient is on dexamethasone and remdesivir. Will follow up with ID and customer response representative recommendation for discharge Objective - Constitutional Vitals: Vital Signs - 12hr 08/27/19 09:58 O2 Sat by Pulse 95 Oximetry General appearance: Present: mild distress (Patient has mild shortness of breath with activities. Will evaluate patient for home oxygen before discharge presently patient is on 3 L nasal cannula O2 sat per record is 95%) - Respiratory Respiratory: bilateral: diminished (Breath sounds diminished bilaterally. Patient reported history of tobacco use for 50 years. Discussed tobacco use cessation. Patient voiced understanding.) - Labs CBC & Chem 7: 08/24/19 07:46 08/25/19 15:31 Labs: Abnormal lab results 08/25/19 08/26/19 Range/Units Unknown 23:42 POC Glucose 109 H (70-105) Coronavirus (PCR) Positive A (Negative) HEART Score - HEART Score Troponin: Troponin T < 0.010 ng/mL (0.00-0.029) 08/23/19 19:06
[2019-08-27] MEDS: REMDESIVIR 100 MG in SODIUM CHLORIDE 0.9% 250ML 250 ML IV SCH (18:27)
[2019-08-27] MEDS: SODIUM CHLORIDE 0.9% 50 ML IVPB IV SCH (18:27)
[2019-08-28 05:08] LABS: Alanine Aminotransferase 75 units/L (7-56); Albumin 3.3 g/dL (3.9-5)
[2019-08-28 05:26] LABS: Bilirubin,Direct < 0.2 mg/dL (0-0.2)
[2019-08-28] MEDS: DEXAMETHASONE 4 MG TAB PO SCH (10:34)
[2019-08-28] MEDS: ENOXAPARIN 40 MG/0.4 ML INJ SUB-Q SCH ×2 (10:34→21:36)
[2019-08-28] MEDS: NIFEdipine XL 30 MG TAB PO SCH (10:34)
--- NOTE | 2019-08-28 12:24 | Progress Note ---
Assessment and Plan Sinus bradycardia, chronic pt is asymptomatic outpatient echo 05/2019 LVEF 53% Essential hypertension COVID 19 viral pneumonia Avoid AV shamir blocking agents. Otherwise, conservative cardiac management. Subjective Date of service: 08/28/19 Principal diagnosis: Fever weakness suspected COVID. Interval history: Sinus bradycardia on telemetry. Objective Vital Signs Temp Pulse Resp BP Pulse Ox 08/28/19 10:55 96 08/28/19 04:56 97.9 F 46 L 20 143/60 94 08/27/19 21:58 97 08/27/19 16:57 97.4 F L 54 L 20 152/65 95 08/27/19 13:33 98.3 F 52 L 20 157/61 94 - Physical Examination Narrative exam: Deferred due to coronavirus isolation Neuro: Positive: Grossly Intact Abdomen: Positive: Soft Skin: Positive: Clear Extremities: Absent: edema - Labs and Meds Cardiac Enzymes 08/28/19 Range/Units 04:13 AST 40 (5-40) units/L Comprehensive Metabolic Panel 08/28/19 Range/Units 04:13 Direct Bilirubin < 0.2 (0-0.2) mg/dL Indirect Bilirubin 0.1 mg/dL AST 40 (5-40) units/L ALT 75 H (7-56) units/L Alkaline Phosphatase 56 (35-129) units/L Total Protein 6.6 (6.3-8.2) g/dL Albumin 3.3 L (3.9-5) g/dL
--- NOTE | 2019-08-28 14:56 | Progress Note ---
Assessment and Plan Cultures: Coronavirus PCR: positive A/P: 73-year-old male with hypertension admitted to the hospital with shortness of breath: #Bilateral pneumonia: Secondary to COVID (tested positive 2 weeks ago) and here again. d-dimer 691, ferritin is significantly elevated at > 2K, LDH 508, procalcitonin 0.17 #Acute hypoxic respiratory failure: Hypoxic requiring supplemental oxygen #Leukopenia secondary to COVID-19 #Elevated LFTs secondary to COVID-19 Recs: IV/PO Dexamethasone 6 mg daily x 10 days, D4 IV Remdesivir for 5 days, monitor LFTs, D4 Monitor oxygen saturations, if further decline, may need to give Actemra given elevated ferritin and markers prophylactic anticoagulation based on d-dimer: 0.5 mg/kg of Lovenox every 12 hours trend ferritin, LDH, d-dimer, CRP every 2-3 days for risk stratification and to assess disease progression Luz Brewster MD, FACP [facility] C: [phone] O: [phone] F: [phone] Subjective Date of service: 08/28/19 Principal diagnosis: Fever weakness suspected COVID. Interval history: No fever. Remains on oxygen. Objective - Exam Narrative Exam: Physical Exam (reviewed in chart due to PPE conservation) Constitutional: limited due to PPE conservation strategy Head, Ears, Nose: limited due to PPE conservation strategy Eyes: limited due to PPE conservation strategy Neck: limited due to PPE conservation strategy Oral: limited due to PPE conservation strategy Cardiovascular: limited due to PPE conservation strategy Respiratory: limited due to PPE conservation strategy GI: limited due to PPE conservation strategy Musculoskeletal: limited due to PPE conservation strategy Skin: limited due to PPE conservation strategy Hem/Lymphatic: limited due to PPE conservation strategy Psych: limited due to PPE conservation strategy Neurological: limited due to PPE conservation strategy - Constitutional Vitals: Vital Signs Temp Pulse Resp BP Pulse Ox 98.6 F 50 L 20 137/60 93 08/28/19 11:21 08/28/19 11:21 08/28/19 11:21 08/28/19 11:21 08/28/19 11:21 Temperature -Last 24 Hours Temperature 98.6 F Temperature 97.9 F Temperature 97.4 F - Labs CBC & Chem 7: 08/24/19 07:46 08/25/19 15:31 Labs: Abnormal lab results 08/28/19 08/28/19 Range/Units 04:13 04:13 D-Dimer 432.83 H (0-234) ng/mlDDU ALT 75 H (7-56) units/L Albumin 3.3 L (3.9-5) g/dL
[2019-08-28] MEDS: REMDESIVIR 100 MG in SODIUM CHLORIDE 0.9% 250ML 250 ML IV SCH (19:05)
[2019-08-28] MEDS: SODIUM CHLORIDE 0.9% 50 ML IVPB IV SCH (19:05)
[2019-08-29] MEDS: DEXAMETHASONE 4 MG TAB PO SCH (09:45)
[2019-08-29] MEDS: ENOXAPARIN 40 MG/0.4 ML INJ SUB-Q SCH ×2 (09:46→21:43)
[2019-08-29] MEDS: NIFEdipine XL 30 MG TAB PO SCH (09:46)
[2019-08-29] MEDS: SODIUM CHLORIDE 0.9% 50 ML IVPB IV SCH (18:43)
[2019-08-29] MEDS: REMDESIVIR 100 MG in SODIUM CHLORIDE 0.9% 250ML 250 ML IV SCH (18:43)
--- NOTE | 2019-08-29 20:28 | Progress Note ---
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 explained to patient DVT prohylaxis-Lovenox 08/26/19-reviewed ID note IV/PO Dexamethasone 6 mg daily x 10 days, D2 IV Remdesivir for 5 days, monitor LFTs, D2 08/27/19-hepatic panel and inflammatory makers in am 08/29/19; possible discharge tomorrow if stable History Interval history: Patient seen and examined Patient's chart and medications reviewed Patient feels slightly better no new complaints Vital signs noted Hospitalist Physical - Constitutional Vitals: Temp Pulse Resp BP Pulse Ox 97.6 F 95 H 18 136/77 99 08/29/19 14:55 08/29/19 14:55 08/29/19 14:55 08/29/19 14:55 08/29/19 14:55 General appearance: Present: mild distress (Patient has mild shortness of breath with activities. Will evaluate patient for home oxygen before discharge presently patient is on 3 L nasal cannula O2 sat per record is 95%), well- nourished, cachectic - EENT Eyes: Present: PERRL, EOM intact - Neck Neck: Present: supple, normal ROM - Respiratory Respiratory effort: normal Respiratory: bilateral: diminished, negative: rales, rhonchi, wheezing - Cardiovascular Rhythm: regular Heart Sounds: Present: S1 & S2 - Extremities Extremities: no ischemia, No edema - Abdominal General gastrointestinal: soft, non-tender, non-distended, normal bowel sounds - Integumentary Integumentary: Present: clear, warm - Psychiatric Psychiatric: appropriate mood/affect, cooperative - Neurologic Neurologic: moves all extremities HEART Score - HEART Score Troponin: Troponin T < 0.010 ng/mL (0.00-0.029) 08/23/19 19:06 Results - Labs CBC & Chem 7: 08/24/19 07:46 08/25/19 15:31 Labs: Laboratory Last Values WBC 2.5 K/mm3 (4.5-11.0) L 08/24/19 07:46 RBC 5.27 M/mm3 (3.65-5.03) H 08/24/19 07:46 Hgb 12.7 gm/dl (11.8-15.2) 08/24/19 07:46 Hct 40.2 % (35.5-45.6) 08/24/19 07:46 MCV 76 fl (84-94) L 08/24/19 07:46 MCH 24 pg (28-32) L 08/24/19 07:46 MCHC 32 % (32-34) 08/24/19 07:46 RDW 14.8 % (13.2-15.2) 08/24/19 07:46 Plt Count 144 K/mm3 (140-440) 08/24/19 07:46 Lymph % (Auto) 30.8 % (13.4-35.0) 08/24/19 07:46 [place] % (Auto) 11.7 % (0.0-7.3) H 08/24/19 07:46 Eos % (Auto) 0.1 % (0.0-4.3) 08/24/19 07:46 Baso % (Auto) 0.6 % (0.0-1.8) 08/24/19 07:46 Lymph # 0.8 K/mm3 (1.2-5.4) L 08/24/19 07:46 [place] # 0.3 K/mm3 (0.0-0.8) 08/24/19 07:46 Eos # 0.0 K/mm3 (0.0-0.4) 08/24/19 07:46 Baso # 0.0 K/mm3 (0.0-0.1) 08/24/19 07:46 Seg Neutrophils % 56.8 % (40.0-70.0) 08/24/19 07:46 Seg Neutrophils # 1.4 K/mm3 (1.8-7.7) L 08/24/19 07:46 D-Dimer 432.83 ng/mlDDU (0-234) H 08/28/19 04:13 Sodium 139 mmol/L (137-145) 08/25/19 15:31 Potassium 4.8 mmol/L (3.6-5.0) 08/25/19 15:31 Chloride 102.6 mmol/L (98-107) 08/25/19 15:31 Carbon Dioxide 23 mmol/L (22-30) 08/25/19 15:31 Anion Gap 18 mmol/L 08/25/19 15:31 BUN 17 mg/dL (9-20) 08/25/19 15:31 Creatinine 0.9 mg/dL (0.8-1.5) 08/25/19 15:31 Estimated GFR > 60 ml/min 08/25/19 15:31 BUN/Creatinine Ratio 19 % 08/25/19 15:31 Glucose 105 mg/dL (75-100) H 08/25/19 15:31 Glucose 107 mg/dL (75-100) H 08/25/19 15:31 POC Glucose 109 (70-105) H 08/26/19 23:42 Lactic Acid 1.10 mmol/L (0.7-2.0) 08/23/19 19:06 Calcium 8.7 mg/dL (8.4-10.2) 08/25/19 15:31 Ferritin 3086.0 ng/mL (13.0-400.0) H 08/25/19 15:31 Total Bilirubin 0.30 mg/dL (0.1-1.2) 08/28/19 04:13 Direct Bilirubin < 0.2 mg/dL (0-0.2) 08/28/19 04:13 Indirect Bilirubin 0.1 mg/dL 08/28/19 04:13 AST 40 units/L (5-40) 08/28/19 04:13 ALT 75 units/L (7-56) H 08/28/19 04:13 Alkaline Phosphatase 56 units/L (35-129) 08/28/19 04:13 Lactate Dehydrogenase 508 units/L (91-180) H 08/25/19 15:31 Total Creatine Kinase 945 units/L (55-170) H 08/23/19 19:06 CK-MB (CK-2) 3.2 ng/mL (0.0-4.0) 08/23/19 19:06 CK-MB (CK-2) Rel Index 0.3 (0-4) 08/23/19 19:06 Troponin T < 0.010 ng/mL (0.00-0.029) 08/23/19 19:06 C-Reactive Protein 1.70 mg/dL (0.00-1.30) H 08/25/19 15:31 Total Protein 6.6 g/dL (6.3-8.2) 08/28/19 04:13 Albumin 3.3 g/dL (3.9-5) L 08/28/19 04:13 Albumin/Globulin Ratio 1.0 % 08/28/19 04:13 Procalcitonin 0.08 ng/mL (<0.15) 08/25/19 15:31 TSH 2.370 mlU/mL (0.270-4.200) 08/25/19 15:31 Coronavirus (PCR) Positive (Negative) A 08/25/19 Unknown Jeffers/IV: Voiding Method Urinal IV Catheter Type [Left Wrist] Peripheral IV IV Catheter Type [Right Hand] INT / Saline Lock Active Medications - Current Medications Current Medications: Generic Name Dose Route Start Last Admin Trade Name Freq PRN Reason Stop Dose Admin Acetaminophen 650 mg 08/23/19 20:42 Tylenol PO Q4H PRN Pain MILD(1-3)/Fever >100.5/DC Dexamethasone 6 mg 08/25/19 19:00 08/29/19 09:45 Decadron PO 09/04/19 18:59 6 mg DAILY MARLY Administration Enoxaparin Sodium 40 mg 08/25/19 22:00 08/29/19 09:46 Enoxaparin SUB-Q 40 mg BID MARLY Administration Nifedipine 30 mg 08/25/19 14:00 08/29/19 09:46 Procardia Xl PO 30 mg QDAY MARLY Administration Ondansetron HCl 4 mg 08/23/19 20:42 Zofran IV Q8H PRN Nausea And Vomiting Sodium Chloride 10 ml 08/23/19 22:00 08/29/19 09:46 Sodium Chloride Flush Syringe 10 Ml IV 10 ml BID MARLY Administration Sodium Chloride 10 ml 08/23/19 20:42 08/27/19 22:10 Sodium Chloride Flush Syringe 10 Ml IV 10 ml PRN PRN Administration LINE FLUSH
[2019-08-30] MEDS: DEXAMETHASONE 4 MG TAB PO SCH (09:10)
[2019-08-30] MEDS: ENOXAPARIN 40 MG/0.4 ML INJ SUB-Q SCH (09:10)
[2019-08-30] MEDS: NIFEdipine XL 30 MG TAB PO SCH (09:10)
[2019-08-30 13:27] VITALS: BP 117/71
--- NOTE | 2019-08-30 15:17 | Discharge Summary ---
Providers - Providers Date of Admission: 08/23/19 20:43 Date of discharge: 08/30/19 Attending physician: JAY SUTTON 08/24/19 16:29 Consult to Physician [CONS] Routine Comment: Consulting Provider: APRYL OG Physician Instructions: Reason For Exam: covid. pna 08/25/19 09:11 Consult to Physician [CONS] Routine Comment: Consulting Provider: APRYL OG Physician Instructions: Reason For Exam: post covid infection 08/25/19 12:50 Consult to Physician [CONS] Routine Comment: Consulting Provider: BILLY CASTILLO Physician Instructions: Reason For Exam: [place] 08/29/19 20:26 Physical Therapy Evaluation and Treat [CONS] Routine Comment: Reason For Exam: General debility/DC needs [facility] Condition: Fair Disposition: DC-01 TO HOME OR SELFCARE Time spent for discharge: 32 min Core Measure Documentation - Palliative Care Palliative Care/ Comfort Measures: Not Applicable - Core Measures Any of the following diagnoses?: none Exam - Constitutional Vitals: Temp Pulse Resp BP Pulse Ox 97.6 F 61 20 117/71 99 08/30/19 12:13 08/30/19 12:13 08/30/19 12:13 08/30/19 12:13 08/30/19 13:38 General appearance: Present: no acute distress, well-nourished - EENT Eyes: Present: PERRL, EOM intact - Neck Neck: Present: supple, normal ROM - Respiratory Respiratory effort: normal Respiratory: bilateral: diminished, negative: rales, rhonchi, wheezing - Cardiovascular Rhythm: regular Heart Sounds: Present: S1 & S2 - Extremities Extremities: no ischemia, No edema - Abdominal General gastrointestinal: Present: soft, non-tender, non-distended, normal bowel sounds - Integumentary Integumentary: Present: clear, warm - Musculoskeletal Musculoskeletal: strength equal bilaterally, generalized weakness - Psychiatric Psychiatric: appropriate mood/affect, cooperative - Neurologic Neurologic: moves all extremities Plan Activity: advance as tolerated, fall precautions Diet: regular Additional Instructions: Advised to follow COVID-19, isolation, self quarantine protocols as explained. By the discharge nurse. If you have any questions or concerns contact primary care physician. Your resting room air and resting ambulatory oxygen saturation more than 95%, no indication for home oxygen Follow up with: JAMES RAMIREZ MD [Primary Care Provider] - 3-5 Days BILLY CASTILLO MD [Staff Physician] - 7 Days Prescriptions: dexAMETHasone [Decadron] 6 mg PO DAILY #5 tablet NIFEdipine XL [Procardia Xl] 30 mg PO QDAY #30 tablet
== END 2019-08-30 17:50 | disposition home or self-care (01) | DRG 871 ==
LOC: ED 17:08 → 3A 20:43
PROVIDERS: ADMIT Internal Medicine; ATTEND Internal Medicine
DX: A41.9 Sepsis, unspecified organism (principal); U07.1 COVID-19; J96.01 Acute respiratory failure with hypoxia; J12.89 Other viral pneumonia; I10 Essential (primary) hypertension; Z82.49 Family history of ischemic heart disease and other diseases of the circulatory system; F17.200 Nicotine dependence, unspecified, uncomplicated
CPT/HCPCS: 36415; 71045; 80048; 80053; 80076; 82140; 82550; 82553; 82728; 82947; 82962; 83615; 84145; 84443; 84484; 85025; 85379; 86140; 93005; 94760; 99406; G0378; J0456; J0696; J1100; J1650; J7050; J8540; U0003-CS